=== PATIENT | female | born 1945 | race African-American/Black ===

== ENCOUNTER → 2018-10-07 | Outpatient (CLI) | payer MEDICARE, OTHER ==
[~2018-10-07] MED LIST: AMOXICILLIN 50500 MG PO; CETIRIZINE; GENTAMICIN EYE D5 ML OS; NO HOME MEDICATIONS; PERCOCET 325 MG1 TA2 PO
== END ==
LOC: COL.RAD 09-29 11:15
DX: D17.21 Benign lipomatous neoplasm of skin and subcutaneous tissue of right arm (principal)

== ENCOUNTER → 2019-11-15 | Outpatient (CLI) | payer MEDICARE, OTHER | LOC: MC.RAD 13:45 | DX: Z12.31 Encounter for screening mammogram for malignant neoplasm of breast (principal) ==

== ENCOUNTER → 2021-09-16 | Outpatient (CLI) | payer MEDICARE, OTHER | LOC: COL.RAD 12:24 | DX: E04.2 Nontoxic multinodular goiter (principal) ==